=== PATIENT | male | born 1945 | race Caucasian/White ===

== ENCOUNTER 2022-09-25 10:59 | Day surgery (SDC) | payer MEDICARE, BC ==
[~2022-09-25] VITALS: Ht 175.3 cm; Wt 75.5 kg
[2022-09-25] VITALS (9 sets, daily range): BP systolic 100–118; BP diastolic 58–78
[2022-09-25] MEDS ORDERED: SACU1TAB PO (11:24)
[2022-09-25] MEDS ORDERED: TRAZ-251 PO (11:24)
[2022-09-25] MEDS ORDERED: PIOG15TA8 PO (11:24)
[2022-09-25] MEDS ORDERED: PRAV40TA3 PO (11:24)
[2022-09-25] MEDS ORDERED: FLUO-167 PO (11:24)
[2022-09-25] MEDS ORDERED: METO-384 PO (11:24)
[2022-09-25] MEDS ORDERED: LANS30CA37 PO (11:25)
[2022-09-25] MEDS ORDERED: normal saline 1000ml 1,000 ML IV PRN (11:40)
[2022-09-25 11:50] LABS: BASOPHILS # (AUTO) 0.1 X10'3 (0-0.2); BASOPHILS % (AUTO) 0.4 % (0-1); EOSINOPHILS # (AUTO) 0.2 X10'3 (0-0.9); EOSINOPHILS % (AUTO) 0.5 % (0-6); HEMATOCRIT 36.1 % (42.0-52.0); HEMOGLOBIN 11.6 g/dl (14.0-17.9); LYMPHOCYTES # (AUTO) 1.7 X10'3 (1.1-4.8); MEAN CORPUSCULAR VOLUME 81.1 FL (78-98); MONOCYTES # (AUTO) 1.9 X10'3 (0-0.9); MONOCYTES % (AUTO) 5.7 % (2-12); NEUTROPHILS # (AUTO) 29.6 X10'3 (1.8-7.7); NEUTROPHILS % (AUTO) 88.4 % (42-75); PLATELET COUNT 407 X10'3 (140-440); RED BLOOD COUNT 4.45 X10'6 (4.70-6.10); RED CELL DISTRIBUTION WIDTH 16.7 % (11.5-14.5)
[2022-09-25 11:52] LABS: WHITE BLOOD COUNT 33.4 X10'3 (4.5-11.0)
[2022-09-25 12:32] LABS: TOTAL CELLS COUNTED 100
[2022-09-25 12:33] LABS: ANISOCYTOSIS 1+; PLATELET ESTIMATE NORMAL
[2022-09-25] MEDS ORDERED: midazolam 1 mg/ML 2ml injection ONE (12:49)
[2022-09-25] MEDS ORDERED: fentaNYL/PF 50MCG/1 ML 2ML syringe ONE (12:49)
== END 2022-09-25 15:00 | disposition home or self-care (01) ==
LOC: SSTAY O 10:59
PROVIDERS: ATTEND Radiology Vascular & Interventional Radiology
DX: R19.04 Left lower quadrant abdominal swelling, mass and lump (principal); C76.2 Malignant neoplasm of abdomen; D72.829 Elevated white blood cell count, unspecified; Z79.01 Long term (current) use of anticoagulants; Z79.899 Other long term (current) drug therapy
CPT/HCPCS: 49180; 77012; 85025; 85610; 99152; 99153; J2250; J3010; J7030; 85007; 88173; 88305; A4615